=== PATIENT | female | born 1985 | race African-American/Black ===

== ENCOUNTER 2024-10-01 10:33 | Outpatient (REF) | payer MEDICAID, SELFPAY ==
[2024-10-01 13:20] LABS: MANUAL DIFF FLAG NO
[2024-10-01 13:28] LABS: Basophils Percent Auto 0.3 % (0-2); Eosinophils Absolute Auto 0.1 X10*3/uL (0.0-0.4); Eosinophils Percent Auto 0.8 % (0-4); Hematocrit 34.7 % (37.0-47.0); Hemoglobin 11.6 g/dl (12.0-16.0); Imm Gran Pct Auto 2.1 % (0.0-0.4); Lymphocytes Absolute Auto 2.4 X10*3/uL (1.2-4.9); Lymphocytes Percent Auto 26.2 % (20-40); Mean Corpuscular HGB Conc 33.4 g/dl (31.0-35.0); Mean Corpuscular Hemoglobin 30.3 pg (27.0-33.0); Mean Corpuscular Volume 90.6 fL (80.0-98.0); Mean Platelet Volume 10.1 fL (9.4-12.3); Monocytes Absolute Auto 0.8 X10*3/uL (0.1-1.2); Monocytes Percent Auto 8.6 % (2-11); Neutrophils Absolute Auto 5.8 x10*3/uL (2.0-8.3); Platelet Count 312 X10*3/uL (160-400); Red Blood Count 3.83 X10*6/uL (4.20-5.50); Red Cell Distribution Width 13.7 % (11.0-16.0); White Blood Count 9.3 X10*3/uL (4.8-10.8)
[2024-10-01 13:38] LABS: Estimated Average Glucose 105 mg/dL; Hemoglobin A1C 108.8788 umol/L; Hemoglobin A1c % 5.3 % (<6.0); Total Hemoglobin (HGBA1C) 3128.3282 umol/L
[2024-10-01 13:52] LABS: Alanine Aminotransferase 17 U/L (0-31); Albumin Level 3.7 g/dL (3.5-5.0); Alkaline Phosphatase 84 U/L (39-117); Anion Gap 9 (12-20); Aspartate Amino Transferase 20 U/L (5-31); Bilirubin Total 0.3 mg/dL (0.0-1.0); Blood Urea Nitrogen 4 mg/dL (9-16); Calcium 9.7 mg/dL (8.4-10.2); Carbon Dioxide 24 mmol/L (22-29); Chloride 106 mmol/L (96-108); Estimated Glomerular Filt Rate > 60; Glucose Random 72 mg/dL (60-115); Potassium 3.4 mmol/L (3.3-5.1); Sodium 136 mmol/L (135-145); Total Protein 7.6 g/dL (6.5-8.0)
[2024-10-01 13:58] LABS: TSH reflex Free T4 1.69 uIU/mL (0.32-4.0)
[2024-10-02 08:04] LABS: HIV AB/AG Nonreactive (Nonreactive); HIV Num 1 0.07 S/CO (0.00-0.99); ~HepC Num1 0.09 S/CO (0.00-0.79); ~Hepatitis C Antibody Nonreactive (Nonreactive)
== END 2024-10-01 10:34 | disposition home or self-care (01) ==
LOC: HO.HHCL 10:33
DX: Z00.00 Encounter for general adult medical examination without abnormal findings (principal); Z11.3 Encounter for screening for infections with a predominantly sexual mode of transmission; Z11.4 Encounter for screening for human immunodeficiency virus [HIV]
CPT/HCPCS: 36415; 80053; 83036; 84443; 85025; 86803; 87389

== ENCOUNTER 2025-03-11 03:48 | Emergency (ER) | payer MEDICAID, SELFPAY ==
[2025-03-11 04:07] VITALS: BP 125/73; PULSE 106; O2SAT 98
[2025-03-11 04:11] VITALS: BP 106/55; PULSE 88; RESP 16; TEMP 37.1; O2SAT 97; BMI 35.5
[2025-03-11 04:41] LABS: MANUAL DIFF FLAG NO
[2025-03-11 04:42] LABS: Hematocrit 34.0 % (37.0-47.0); Hemoglobin 11.2 g/dl (12.0-16.0); Imm Gran Abs Auto 0.01 X10*3/uL (0.00-0.03); Imm Gran Pct Auto 0.1 % (0.0-0.4); Lymphocytes Absolute Auto 3.2 X10*3/uL (1.2-4.9); Mean Corpuscular HGB Conc 32.9 g/dl (31.0-35.0); Mean Corpuscular Hemoglobin 28.7 pg (27.0-33.0); Mean Corpuscular Volume 87.2 fL (80.0-98.0); NRBC Abs Auto 0.000 X10*3/uL (0.0-0.012); NRBC Pct Auto 0.0 /100WBC (0.0-0.2); Platelet Count 305 X10*3/uL (160-400); Red Blood Count 3.90 X10*6/uL (4.20-5.50); White Blood Count 7.9 X10*3/uL (4.8-10.8)
[2025-03-11 05:06] LABS: Alanine Aminotransferase 47 U/L (0-31); Albumin Level 4.3 g/dL (3.5-5.0); Alkaline Phosphatase 132 U/L (39-117); Anion Gap 12 (12-20); Aspartate Amino Transferase 40 U/L (5-31); Blood Urea Nitrogen 12 mg/dL (9-16); Calcium 9.0 mg/dL (8.4-10.2); Carbon Dioxide 26 mmol/L (22-29); Chloride 106 mmol/L (96-108); Creatinine Clr Calc Pharmacy 114.2; Estimated Glomerular Filt Rate > 60; Sodium 141 mmol/L (135-145); Total Protein 7.4 g/dL (6.5-8.0)
--- OUTSIDE RECORDS SUMMARY | 2025-03-11 05:16 | XMS_ITS | Clinical Summary ---
Author Organization [employer] Address [address] [facility] [address] [place] [address] Care Team Providers Care Business Liaison Manager Name Role Phone Edd Cervantes NASEEM Primary Care Provider [phone] Allergies No known active allergies Medications dextran 70-hypromellose (artificial tears) 0.1-0.3 % ophthalmic solution Administer 1 drop into both eyes if needed in the morning, at noon, and at bedtime for dry eyes. 30 mL 3 5 09/27/19 26 Active multivitamin () 27-0.8 MG tablet Take 1 tablet by mouth Once per day. 30 tablet 5 Active pyridoxine (Vitamin B-6) 25 MG tabletIndication s:Nausea and vomiting, unspecified vomiting type Take 1 tablet (25 mg) by mouth every 8 (eight) hours if needed (nausea, Vomiting). 30 tablet 5 Active chlorhexidine (Peridex) 0.12 % solution Use 15ml swish and spit twice a day for 3-5 days 110 mL 5 Active Aspirin Low Dose 81 MG EC tablet Take 2 tablets by mouth Once per day. 5 Active multivitamin () 27-0.8 MG tabletIndication s:24 weeks gestation of Take 1 tablet by mouth Once per day. 30 tablet 6 5 Active Active Problems Problem Noted Date Diagnosed Date Living in longterm 11/04/2024 Non-Wallisian speaking patient 11/04/2024 Obese 11/04/2024 11/04/2024 AMA (advanced maternal age) multigravida 35+ Strain of right trapezius muscle 08/12/2024 Assessment & Plan (08/12/2024 1:33 PM EST): Likely muscle strain. No acute trauma or injury, suspect probably from certain positioning. -prescribed acetaminophen (Tylenol) 325 MG PRN for pain -encouraged to rest muscle and message area as tolerable. 12 weeks gestation of 08/12/2024 Assessment & Plan (08/12/2024 1:53 PM EST): A0 approx. 12/13 weeks gestation. Referral to [facility]/GOVERNMENT AFFAIRS DIRECTOR done 07/10/24 and again 07/17/24. Initially referred to SUPPORT DIRECTOR and the redirected to be seen by [facility] SUPPORT DIRECTOR due to her history, Had US that has not been red yet. Pt was contacted for new patient appt but left message due to no answer on 07/17/24, has also been called by our [facility] department without answer multiple times. Today confirmed pt's phone number. Handed her Televisit appt, confirmed phone number as one was incorrect. Elevated blood pressure reading 08/12/2024 Assessment & Plan (08/12/2024 2:43 PM EST): Pt left before recheck. 8 weeks gestation of 07/10/2024 Assessment & Plan (07/17/2024 4:58 PM EST): Pt here as a new patient, has no significant PMHx, No significant Surgical Hx, A0, No allergies Last Menstrual Period 05/08/2024 Plan: Referral for Care to [facility]. [facility] Midwifery declined referral due to patient considered high risk Start a Daily multivitamin Pt c/o nausea and vomiting, able to tolerate fluids without issues Counseled about conservative measures and started Pyridoxine 25 mg po q 8 hrs PRN Encounters Date Type Department Care Team Description 02/26/2025 Patient Outreach [facility] [address] [place] [phone] Edd Cervantes CNP Care Coordination (C3/CHW ERICKA Charles- Follow up-[facility]) 02/26/2025 Telephone [facility] [address] [place] [phone] Edd Cervantes CNP Care Management (C3CM follow up call) 02/19/2025 Telephone [facility] [address] [place] [address] Edd Cervantes CNP Chart Prep 02/12/2025 Patient Outreach [facility] [address] [place] [address] Edd Cervantes CNP Transition Of Care (Tcm) (HDF unscheduled ) 02/12/2025 Telephone [facility] [address] [place] [phone] Edd Cervantes CNP Care Management (C3CM follow up call) 02/10/2025 Patient Outreach [facility] [address] [place] [phone] Edd Cervantes CNP Care Coordination (C3CM/ERICKA Patel- In person Facility Visit) 02/10/2025 Telephone [facility] [address] [place] [phone] Edd Cervantes CNP Care Management (C3CM follow up call) 01/19/2025 Telephone [facility] [address] [place] [phone] Edd Cervantes CNP [place] recall 01/19/2025 Telephone [facility] [address] [place] [phone] Edd Cervantes CNP Care Management (C3 TC #1-unable to lvm) 01/14/2025 Patient Outreach [facility] [address] [place] [phone] Edd Cervantes CNP Care Coordination (C3/ERICKA Patel#2-Follow up-Unable to reach) 01/05/2025 Telephone [facility] [address] [place] [phone] Yaz Grayson OD 12/30/2024 Patient Outreach [facility] [address] [place] [phone] Edd Cervantes CNP 12/29/2024 Patient Outreach [facility] [address] [place] [phone] Edd Cervantes CNP 12/26/2024 Patient Outreach [facility] [address] [place] [phone] Edd Cervantes CNP Care Coordination (C3/ERICKA Patel#1- Follow up- Unable to LVM) 12/16/2024 Patient Outreach [facility] [address] [place] [address] Edd Cervantes CNP Care Coordination (C3/TOMEKA apple, In-person meet-[facility] assistance) 12/16/[address] [address] Edd Cervantes CNP Care Management (C3CM follow up call) 12/11/2024 Patient Outreach [address] [address] Edd Cervantes CNP Care Coordination (STEPHY/ERICKA Patel- Follow up call) from Last 3 Months Family History Medical History Relation Name Comments Hypertension Mother Relation Name Status Comments Mother Social History Tobacco Use Types Packs/Day Years Used Date Smoking Tobacco: Never Passive Smoke Exposure: Never Smokeless Tobacco: Never Tobacco Cessation:Counseling Given: Not Answered Depression Answer Date Recorded Patient Health Questionnaire-9 Score 0 10/01/2024 Patient Health Questionnaire-9 Score 0 10/01/2024 Last PHQ-9: Questionnaire Data Not on file 0 10/01/2024 Housing Stability Answer Date Recorded What is your housing situation today? I do not have housing (Staying with others, in a hotel, in a longterm, living outside on the street, on a beach, in a car, or in a park 10/21/[address] you li ve. Do you have problems with any of the following? None of the above 10/21/2024 Food Insecurity Answer Date Recorded Within the past 12 months, y ou worried that your food would run out before you got money to buy more: Sometimes True 2024 Within the past 12 months,th e food you bought just didn't last and you didn't have enough money to get more: Sometimes True 10/01/2024 Transportation Answer Date Recorded In the past 12 months, has l ack of transportation kept you from medical appts, meetings, work or from getting things needed for daily living? Yes, it has kept me from medical appointments or getting medications. 10/21/2024 Utilities Answer Date Recorded In the past 12 months, has t he electric, gas, oil or water company threatened to shut off services in your home? No 10/01/2024 Depression Answer Date Recorded Patient Health Questionnaire-2 Score 0 10/01/2024 Internet Access Answer Date Recorded Internet Access Q1 Yes 10/01/2024 Internet Access Q2 Not on file 10/01/2024 Comments No Sex and Gender Information Value Date Recorded Sex Assigned at Female 02/04/2024 9:20 AM EDT Legal Sex Female 9:19 AM EDT Gender Identity Female 02/04/2024 9:20 AM EDT Sexual Orientation Straight 02/04/2024 9: 21 AM EDT Last Filed Vital Signs Vital Sign Reading Time Taken Comments Blood Pressure 124/82 11/05/2024 8:59 AM EDT Pulse 102 11/05/2024 8:59 AM EDT Temperature 36.8 C (98.2 F) 11/05/2024 8:59 AM EDT Respiratory Rate 22 11/05/2024 8:59 AM EDT Oxygen Saturation 98% 11/05/2024 8:59 AM EDT Inhaled Oxygen Concentration - - Weight 93.4 kg (206 lb) 11/05/2024 8:59 AM EDT Height - - Body Mass Index - - Plan of Treatment Health Maintenance Due Date Last Done Comments Dental Oral Exam 1986 Dental Prophylaxis 1986 Dental X-Ray: Bitewings 1986 Dental X-Ray: Full Mouth 1986 Lipid Panel 1986 Disability Screening 1986 Alcohol/Substance Use Screening 1998 HPV Vaccines (1 - 3-dose series) 2001 Hepatitis B Vaccines (1 of 3 - 19+ 3-dose series) 2005 Pap Smear 2007 Cervical Cancer Screening 02/29/2016 HPV/Cotest 02/29/2016 COVID-19 Vaccine ( - 2023-2 5 season) 2024 Influenza Vaccine (#1) 2025 Family Planning (PISQ) 07/10/2025 07/10/2024 Depression Screening 10/01/2025 10/01/2024, 10/01/2024 SDOH Screening 10/21/2025 10/21/2024 Tobacco Screening 10/24/2025 10/24/2024 DTaP/Tdap/Td Vaccines (2 - T d or Tdap) 11/10/2034 11/10/2024 Zoster Vaccines (1 of 2) 02/29/2036 RSV Patients and Patients Aged 60 years or older (1 - 1-dose 75+ series) 2061 HIV Screening Completed 10/01/2024 Hepatitis C Screening Completed 10/01/2024 HIB Vaccines Aged Out No longer eligi ble based on patient's age to complete this topic Hepatitis A Vaccines Aged Out No long er eligible based on patient's age to complete this topic IPV Vaccines Aged Out No longer eligi ble based on patient's age to complete this topic Meningococcal B Vaccine Aged Out No l onger eligible based on patient's age to complete this topic Meningococcal Vaccine Aged Out No ashly jonatan eligible based on patient's age to complete this topic Pneumococcal Vaccine: Pediatrics (0 to 5 Years) and At-Risk Patients (6 to 49) Years Aged Out No longer eligible b ased on patient's age to complete this topic RSV under 20 months Aged Out No longe r eligible based on patient's age to complete this topic Rotavirus Vaccines Aged Out No longer eligible based on patient's age to complete this topic Procedures Procedure Name Priority Date/Time Associated Diagnosis Comments HEPATITIS C AB W/REFL TO HCV RNA, QN, PCR Routine 10/01/2024 12:57 PM EDT Encounter for screening examination for sexually transmitted disease HIV 1/2 ANTIGEN/ANTIBODY, FOURTH GENERATION W/RFL Routine 10/01/2024 12:57 PM EDT Encounter for screening examination for sexually transmitted disease from Last 3 Months or Most Recently Relevant to Health Maintenance Results * Hepatitis C Antibody with Reflex to HCV, RNA, Quantitative, Real-Time PCR (10/01/2024 12:57 PM EDT) Hepatitis C Antibody Nonreactive Nonreactive [facility] Comment:Antibodies to HCV no t detected; does not exclude early acuteHCV infection. Blood Venous blood specimen / Unknown 10/01/2024 12:57 PM EDT 10/01/2024 1:17 PM EDT [facility] LAB BLOOD ORDERABLES Sharonda l Result Performing Organization Address [facility] Co de Phone Number [facility] [address] [place] [phone] * HIV-1/2 Antigen and Antibodies, Fourth Generation, with Reflexes (10/01/2024 12:57 PM EDT) [facility] HIV AB/AG Nonreactive Nonreactive [facility] Comment:HIV-1 p24 Ag and/or HIV-1/HIV-2 Ab not detected.A test result that is nonreactive does not exclude thepossibility of exposure to or infection with HIV-1 and/orHIV-2. Nonreactive results in this assay for individualswith prior exposure to HIV-1 and/or HIV-2 may be due toantigen and antibody levels that are below the limit ofdetection of this assay.The [employer] HIV Ag/Ab Combo assay result andsupplemental assay results should be interpreted inconjunction with the patient's clinical presentation,history and other laboratory results. If the results areinconsistent with clinical evidence, additional testing issuggested to confirm the result. Blood Venous blood specimen / Unknown 10/01/2024 12:57 PM EDT 10/01/2024 1:17 PM EDT [facility] LAB BLOOD ORDERABLES Sharonda l Result Performing Organization Address City/[facility] Co de Phone Number [facility] [address] [place] [phone] from Last 3 Months or Most Recently Relevant to Health Maintenance Insurance [facility] C3 [facility] MEDICAID STAND ADULT Care Teams Business Liaison Manager Relationship Specialty Start Date End Date Edd Cervantes CNP [address] [place] [phone] PCP - General Family Medicine 10/01/24 Dorcas Sanchez Brigadier 11/21/24
--- NOTE | 2025-03-11 05:39 | ECG_ITS ---
Test Reason : LOW K+ Blood Pressure : */* mmHG Vent. Rate : 103 BPM Atrial Rate : 103 BPM P-R Int : 154 ms QRS Dur : 78 ms QT Int : 332 ms P-R-T Axes : 65 56 43 degrees QTcB Int : 434 ms Sinus tachycardia Nonspecific T wave abnormality Abnormal ECG No previous ECGs available Referred By: Generic ED Physician Electronically Signed By: SHOBHA MORGAN
[2025-03-11] MEDS: Potassium Chloride Packet 20 MEQ PACKET 40 MEQ PO (05:40)
[2025-03-11 05:41] LABS: Magnesium 2.0 mg/dL (1.6-2.6)
[2025-03-11 06:22] LABS: Appearance Urine Clear; Glucose Urine UA Negative (Negative); PH 7.5 (5.0-9.0); Specific Gravity - Urine 1.010 (1.005-1.025); UMIC TRIGGER UACC YES
[2025-03-11 06:39] LABS: Potassium 2.9 mmol/L (3.3-5.1)
[2025-03-11 07:02] VITALS: BP 103/61; PULSE 98; RESP 20; TEMP 36.6; O2SAT 99
[2025-03-11 08:01] VITALS: BP 109/69; PULSE 94; RESP 18; TEMP 37.2; O2SAT 97
--- NOTE | 2025-03-11 09:07 | ED.GENADULT ---
[facility] - General Adult General Chief complaint: Headache Stated complaint: HEADACHE Time Seen by Provider: 03/11/25 08:57 Source: patient Mode of arrival: ambulatory Limitations: no limitations History of Present Illness ED Provider: [facility] narrative: 40-year-old woman 1 month status post delivery via on February 08 reportedly diagnosed with preeclampsia delivered at [facility], she states she was told to come to the ER if her blood pressure is elevated, in triage she endorses she has a headache, but time I evaluate her patient states she did not have a headache, she states she has a small baby at home and the baby has been crying and patient can not get any sleep, her blood pressure was 162/106. Related Data Previous Rx's ?Medication ?Instructions ?Recorded potassium chloride 20 mEq oral 20 meq PO BID 7 days #30 ea 03/11/25 packet Allergies Allergy/AdvReac Type Severity Reaction Status Date / Time No Known Allergies Allergy Verified 03/11/25 04:13 Review of Systems Constitutional: Constitutional: Reports as per [facility] Social History Social History Advance Directives: No Patient : No Physical Exam ED Vital Signs: Vital Signs - 24 hr 03/11/25 04:11 03/11/25 07:02 03/11/25 08:01 Temperature 98.8 F 97.8 F 99.0 F Pulse Rate 88 98 94 Respiratory Rate 16 20 18 Blood Pressure 106/55 L 103/61 109/69 Pulse Oximetry 97 99 97 Oxygen Delivery Method Room Air Room Air Room Air BMI result Body Mass Index 35.5 Const Other: Gen: ?Overall well-appearing patient HEENT: PERRLA, EOMI, MMM, Neck: Supple, no LAD CV: RRR, no obvious murmurs appreciated Resp: ?No wheezing rales rhonchi no stridor moving air well Abd: ?Bowel sounds are present, no tenderness no rebound no rigidity MSK: FROM, strength 5/5 all extremities Skin: Warm, dry, intact, Neuro: ?Alert and oriented x3, moving upper and lower extremities symmetrically, no obvious facial asymmetry noted Medications Administered Discontinued Medications Generic Name Dose Route Start Last Admin Trade Name Freq PRN Reason Stop Dose Admin Sodium Chloride 1,000 mls @ 999 mls/hr 03/11/25 05:30 03/11/25 07:15 Ns IV 03/11/25 06:30 Infused .Q1H1M KIRILL Infusion Ketorolac Tromethamine 15 mg 03/11/25 05:16 03/11/25 05:40 Ketorolac Tromethamine 15 Mg/Ml Vial IVPUSH 03/11/25 05:17 15 mg ONCE ONE Administration Metoclopramide HCl 10 mg 03/11/25 05:16 03/11/25 05:40 Metoclopramide Hcl 10 Mg/2 Ml Vial IVPUSH 03/11/25 05:17 10 mg ONCE ONE Administration Potassium Chloride 40 meq 03/11/25 05:16 03/11/25 05:40 Potassium Chloride Packet 20 Meq Packet PO 03/11/25 05:17 40 meq ONCE ONE Administration Medical Decision Making Medical Decision Making MDM Narrative: It sounds like patient used to be on blood pressure medications and possibly her medications were discontinued, the time my evaluation patient had no symptoms whatsoever, I have low suspicion for subarachnoid hemorrhage did not feel further imaging such as CT is indicated, her blood pressure was down to low 100s without any treatment, she is under lot of stress with a new baby and states the baby has been keeping her up, I did discuss with her regarding blood pressure concerns and fallen up please see my discharge instructions Differential Diagnosis Differential Diagnoses: The differential diagnosis associated with the presentation includes ( eclampsia, preeclampsia, subarachnoid hemorrhage, cavernous venous thrombosis, poorly controlled hypotension) Admission/Observation Consideration of admission/observation: Escalation of care including admission/observation considered (No indication for further management or referral to obstetrics blood pressure improved no symptoms) 2022 Emergency Medicine Coding Guide from [employer] on 03/11/2025 All calculations should be rechecked by clinician prior to use RESULT SUMMARY: 5 Estimated Level of Service Problems: High (5) Risk: High (5) Data: Extensive (5) NARRATIVE MDM: This patient's problem complexity is High as patient: may have an acute or chronic illness/injury posing a threat to life or body function. This patient's risk is High due to: overall presentation requiring evaluation for a potentially High-risk process. This patient's data complexity is Extensive due to: -multiple tests ordered -independent interpretation of imaging or EKG INPUTS: Number and Complexity ?> 2 = 5: illness/injury w/life or body threat (b) Risk level ?> 4 = High Tests ordered ?> 2 = 2 Tests results reviewed (excluding labs) ?> 1 = 1 Prior external notes reviewed ?> 0 = 0 Assessment requiring and independent historian ?> 0 = No Independent interpretation of tests ?> 1 = Yes Discussed management/test interpretation w/external professional ?> 0 = No Lab Data MDM Lab Attestation statement: I reviewed the patient's lab results. 03/11/25 04:38 03/11/25 04:38 Labs: Lab Results 03/11/25 03/11/25 Range/Units 04:38 06:10 WBC 7.9 (4.8-10.8) X10*3/uL RBC 3.90 L (4.20-5.50) X10*6/uL Hgb 11.2 L (12.0-16.0) g/dl Hct 34.0 L (37.0-47.0) % MCV 87.2 (80.0-98.0) fL MCH 28.7 (27.0-33.0) pg MCHC 32.9 (31.0-35.0) g/dl RDW 14.3 (11.0-16.0) % Plt Count 305 (160-400) X10*3/uL MPV 10.3 (9.4-12.3) fL Immature Gran % (Auto) 0.1 (0.0-0.4) % Neut % (Auto) 48.7 (45-73) % Lymph % (Auto) 40.1 H (20-40) % [place] % (Auto) 7.9 (2-11) % Eos % (Auto) 2.7 (0-4) % Baso % (Auto) 0.5 (0-2) % Lymph # (Auto) 3.2 (1.2-4.9) X10*3/uL [place] # (Auto) 0.6 (0.1-1.2) X10*3/uL Eos # (Auto) 0.2 (0.0-0.4) X10*3/uL Baso # (Auto) 0.0 (0.0-0.2) X10*3/uL Abs Immat Gran (auto) 0.01 (0.00-0.03) X10*3/uL Absolute Neuts (auto) 3.8 (2.0-8.3) x10*3/uL Absolute Nucleated RBC 0.000 (0.0-0.012) X10*3/uL Nucleated RBC % (auto) 0.0 (0.0-0.2) /100WBC Sodium 141 (135-145) mmol/L Potassium 2.9 L* (3.3-5.1) mmol/L Chloride 106 (96-108) mmol/L Carbon Dioxide 26 (22-29) mmol/L Anion Gap 12 (12-20) BUN 12 (9-16) mg/dL Creatinine 0.63 (0.5-1.4) mg/dL Estim Creat Clear Calc 114.2 Estimated GFR > 60 Random Glucose 136 H (60-115) mg/dL Calcium 9.0 D (8.4-10.2) mg/dL Magnesium 2.0 (1.6-2.6) mg/dL Total Bilirubin 0.3 (0.0-1.0) mg/dL AST 40 H (5-31) U/L ALT 47 H (0-31) U/L Alkaline Phosphatase 132 H (39-117) U/L Total Protein 7.4 (6.5-8.0) g/dL Albumin 4.3 (3.5-5.0) g/dL Urine Color Yellow Urine Appearance Clear Urine pH 7.5 (5.0-9.0) Ur Specific [place] 1.010 (1.005-1.025) Urine Protein Negative (Neg-Trace) mg/dL Urine Glucose (UA) Negative (Negative) mg/dL Urine Ketones Negative (Negative) mg/dL Urine Blood Trace H (Negative) Urine Nitrite Negative (Negative) Ur Leukocyte Esterase Trace H (Negative) Urine RBC 0-2 (0-2) /HPF Urine WBC 0-5 (0-5) /HPF Ur Squamous Epith Cells 0-2 (0-2) /HPF Urine Bacteria None Seen (None Seen) Hyaline Casts 0-2 (0-2) /LPF Independent Interpretation I performed an independent interpretation of an: EKG (103 beats per minute otherwise normal ECG without dysrhythmia, AV paresh blocks or ST-T changes to suspect underlying ACS, my independent interpretation) Discharge Plan Discharge Clinical Impression: headache, Elevated blood pressure reading Additional Instructions: Please eat potassium rich foods, your potassium was slightly low, I am also prescribing potassium pill for you, monitor your blood pressure and discuss your blood pressure recommendations with the your bulk cooler installer, as discussed your blood pressure was likely affected by the fact that you are not sleeping and then distress, without any management your blood pressure dropped quite low, 1 month after delivery I am not sure until what time though continue wearing about eclampsia with the your, your EKG blood work except for low potassium reassuring Next time you have a headache and elevated blood pressure take a Tylenol, take 400 mg of magnesium relax and take a blood pressure reading, if your blood pressure is elevated, please call your bulk cooler installer any symptoms as discussed severe headaches, chest pain difficulty breathing come back to the ER Prescriptions: New potassium chloride 20 mEq packet 20 meq PO BID 7 Days Qty: 30 0RF Print Language: Manan Holland
[2025-03-11 10:05] VITALS: BP 109/69; PULSE 94; RESP 18; TEMP 37.2; O2SAT 97
== END 2025-03-11 10:55 | disposition home or self-care (01) ==
PROVIDERS: Emergency Provider Emergency Medicine
DX: G44.89 Other headache syndrome (principal); R03.0 Elevated blood-pressure reading, without diagnosis of hypertension; E87.6 Hypokalemia; Z71.3 Dietary counseling and surveillance
CPT/HCPCS: 36415; 80053; 81001; 83735; 85025; 93005; 96361; 96374; 96375; 99284; 99285; J1885; J2765

== ENCOUNTER → 2025-03-11 05:39 | Outpatient (BNV) | payer MEDICAID, SELFPAY | PROVIDERS: Emergency Provider Emergency Medicine; Visit Provider Internal Medicine | DX: R00.0 Tachycardia, unspecified (principal) | CPT/HCPCS: 93010 ==